=== PATIENT | female | born 1960 | race Caucasian/White ===

== ENCOUNTER → 2016-12-31 | Outpatient (CLI) | payer MEDICARE, OTHER ==
--- NOTE | 2016-12-31 23:40 | MR ---
EXAMINATION TYPE: MR shoulder LT wo con DATE OF EXAM: 12/31/2016 6:05 PM COMPARISON: NONE HISTORY: IMPINGEMENT LEFT SHOULDER TECHNIQUE: Multiplanar, multisequence imaging of the left shoulder is performed without contrast. FINDINGS: Biceps tendon is intact. Subscapularis tendon is intact. There is a mild shoulder joint effusion. The re is slight thickening of the anterior glenoid labrum. There is extensive increased signal and thick ening involving the supraspinatus tendon over the humeral head. There is slight retraction. There is mild spurring at the AC joint with mild subacromial impingement. There is a 2 cm area of patchy incre ased signal at the greater tuberosity of the humerus on the T2 images. There is mild increased signal on the T2 images in the inferior glenoid. There is thickening of the inferior glenoid labrum. There is mild narrowing of the glenohumeral joint space. IMPRESSION: Large rotator cuff tear with extensive increased signal and thickening involving the supraspinatus te ndon. There is a mild bone bruise involving the greater tuberosity of the humerus. There is subchondr al edema in the inferior glenoid. An inferior glenoid labral fracture should be considered. There is glenoid labral thickening consistent with degenerative phenomenon. Shoulder joint effusion. Mild suba cromial impingement. There is partial retraction of the supraspinatus tendon at the attachment on th e greater tuberosity. Mild osteoarthritic narrowing of the glenohumeral joint space.
== END | disposition home or self-care (01) ==
LOC: RADMRIMAIN 16:56
PROVIDERS: ATTEND Nurse Practitioner Family
DX: M75.102 Unspecified rotator cuff tear or rupture of left shoulder, not specified as traumatic (principal); M19.012 Primary osteoarthritis, left shoulder; M25.812 Other specified joint disorders, left shoulder

== ENCOUNTER 2017-08-31 16:08 | Emergency (ER) | payer MEDICARE ==
--- NOTE | 2017-08-31 16:43 | ED ---
Fall HPI - General Chief Complaint: Fall Stated Complaint: Fall/Head Injury Time Seen by Provider: 08/31/17 16:22 Source: patient, family, RN notes reviewed Mode of arrival: ambulatory Limitations: no limitations - History of Present Illness Initial Comments: 56-year-old female presents emergency Department chief complaint of fall. Patient states she tripped and fell in to a table and onto the ground. Patient complains of right-sided facial pain, headache and right-sided chest wall pain. Patient denies loss conscious denies neck, back pain. She states she did bump her knee but has no difficulty ambulating in no pain at time of her left knee. 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 He states she has right-sided deficits. Patient denies any dizziness, chest pain, shortness breath this time. She has complaining primarily of right- sided facial pain but has no pain with movement of her jaw. Denies any blurred vision - Related Data Home Medications Medication Instructions Recorded Confirmed Atorvastatin [Lipitor] 20 mg PO HS 08/31/17 08/31/17 Ibuprofen [Motrin] 600 mg PO Q6HR PRN 08/31/17 08/31/17 Lisinopril [Prinivil] 5 mg PO DAILY 08/31/17 08/31/17 Meclizine [Antivert] 25 mg PO DAILY 08/31/17 08/31/17 Metoprolol Tartrate [Lopressor] 25 mg PO BID 08/31/17 08/31/17 Potassium Chloride [K-Tab ER] 10 meq PO DAILY 08/31/17 08/31/17 Rivaroxaban [Xarelto] 20 mg PO DAILY 08/31/17 08/31/17 Torsemide [Demadex] 20 mg PO BID 08/31/17 08/31/17 carBAMazepine 200 mg PO TID 08/31/17 08/31/17 Allergies Allergy/AdvReac Type Severity Reaction Status Date / Time No Known Allergies Allergy Verified 08/31/17 17:15 Review of Systems ROS Statement: Those systems with pertinent positive or pertinent negative responses have been documented in the HPI. ROS Other: All systems not noted in ROS Statement are negative. Past Medical History Past Medical History: CVA/TIA, Deep Vein Thrombosis (DVT), Hyperlipidemia, Hypertension History of Any Multi-Drug Resistant Organisms: None Reported Past Surgical History: Coronary Bypass/CABG, Orthopedic Surgery Past Psychological History: No Psychological Hx Reported Smoking Status: Never smoker Past Alcohol Use History: None Reported Past Drug Use History: None Reported General Exam Limitations: physical limitation General appearance: alert, in no apparent distress Head exam: Present: atraumatic, normocephalic, normal inspection Eye exam: Present: normal appearance, PERRL, EOMI. Absent: scleral icterus, conjunctival injection, periorbital swelling ENT exam: Present: normal oropharynx, mucous membranes moist, TM's normal bilaterally, normal external ear exam, other (Tenderness to right maxillary region) Neck exam: Present: normal inspection, full ROM. Absent: tenderness, meningismus, lymphadenopathy Respiratory exam: Present: normal lung sounds bilaterally, chest wall tenderness (Mild right-sided chest wall tenderness). Absent: respiratory distress, wheezes, rales, rhonchi, stridor Cardiovascular Exam: Present: regular rate, normal rhythm, normal heart sounds. Absent: systolic murmur, diastolic murmur, rubs, gallop, clicks GI/Abdominal exam: Present: soft, normal bowel sounds. Absent: distended, tenderness, guarding, rebound, rigid Extremities exam: Present: normal capillary refill. Absent: normal inspection ( There is some brace noted to the right lower leg, chronic right-sided weakness) , full ROM, tenderness, pedal edema, joint swelling, calf tenderness Back exam: Present: full ROM. Absent: tenderness Neurological exam: Present: alert, oriented X3, CN II-XII intact, reflexes normal. Absent: motor sensory deficit Skin exam: Present: warm, dry, intact, normal color. Absent: rash Course Vital Signs 08/31/17 16:12 Temperature 98.1 F Pulse Rate 73 Respiratory 20 Rate Blood Pressure 159/70 O2 Sat by Pulse 100 Oximetry Medical Decision Making - Medical Decision Making 56-year-old female presented for a fall, facial injury. Patient states that at the similar her face or she has no headache though I did inform her on CT this showed possible meningioma and concern about acute injury. MRI was recommended though MRIs here at this time. Patient is advised that she need to be transferred to another facility and she is declining at this time as she states she has no headache any more. Patient's was still advised that she's been on her she'll sign out AGAINST MEDICAL ADVICE. Disposition Clinical Impression: Fall, Head injury, Facial contusion Disposition: Left Against Medical Advice Condition: Stable Additional Instructions: Please return to the Emergency Department if symptoms worsen or any other concerns. Referrals: None,Stated [Primary Care Provider] - 1-2 days Time of Disposition: 18:32
--- NOTE | 2017-08-31 17:28 | CT ---
EXAMINATION TYPE: CT brain wo con DATE OF EXAM: 08/31/2017 COMPARISON: NONE INDICATION: Trip and fall today. Right supraorbital laceration and right cheek injury. No LOC. DLP: 1036.00 mGycm, Automated exposure control for dose reduction was used. CONTRAST: None CT of the brain is performed utilizing 3 mm thick sections through the posterior fossa and 3 mm thick sections through the remaining calvarium. Study is performed within 24 hours of arrival to the hosp [facility]. No abnormal hyperdensity is present to suggest an acute intracranial hemorrhage. There is a 0.6 cm hyperdensity along the falx. Series 7 image 36. This measures 116 Hounsfield unit s uggesting underlying calcified patient. This may be a calcified meningioma. This is more dense than e xpected for typical hemorrhage and no extension along the falx is evident. This could be confirmed wi th MRI. No acute infarcts are evident. There is an old left middle cerebral artery infarct with ex vacuo effe ct on the lateral ventricle. Prominence of the sulci adjacent to the infarct are evident. Ventricles and sulci are prominent for the patient age. Paranasal sinuses and mastoid air cells within the [id number] are clear. There is some mild hyperostosis frontalis internus. Report was called case discussed at the time of interpretation. IMPRESSIONS: 1. Hyperdense area within the falx more likely related to calcification and suspected meningioma. C onfirmation with MRI is recommended. 2. Changes compatible with an old left middle cerebral artery infarct.
--- NOTE | 2017-08-31 17:33 | CT ---
EXAMINATION TYPE: CT facial bones wo con DATE OF EXAM: 08/31/2017 COMPARISON: NONE HISTORY: Trip and fall today. Right supraorbital laceration and right cheek injury. No LOC. CT DLP: 538.60 mGycm Automated exposure control for dose reduction was used. TECHNIQUE: CT scan of the sinuses is performed without contrast, axial images are obtained, coronal r eformatted images are also reviewed. FINDINGS: Dental amalgam scatter artifact is present. There is mucosal thickening within the left max illary sinus inferiorly. Right septal deviation is present. No acute fractures are evident. The facial bones appear intact. Greater wings of sphenoid are normal. Nasal bones are intact. Zygomatic arches are intact. Maxillary spine is normal. There is soft tissue swelling and contusion through the right cheek region. No underlying fracture of the maxillary sinuses evident. See additional findings within the brain on the CT brain report same date. IMPRESSION: 1. Soft tissue contusion right cheek. 2. No acute osseous abnormality.
--- NOTE | 2017-08-31 17:53 | XR ---
EXAMINATION TYPE: XR chest 2V DATE OF EXAM: 08/31/2017 COMPARISON: NONE INDICATION: Fall, pain TECHNIQUE: Frontal and lateral views of the chest are obtained. FINDINGS: The heart size is upper limits of normal. The pulmonary vasculature is normal. There is a 2 cm nodule along the left heart border. Some streak atelectasis may be at the left base. No pneumothorax is evident. Lung escoto otherwise appear clear.. No displaced rib fractures are identified. IMPRESSION: 1. 2 cm nodular density posterior left lung. CT chest recommended for additional evaluation. 2. An acute posttraumatic change is not identified.
[2017-08-31 18:55] VITALS: BP 108/54; PULSE 76; RESP 16; TEMP 98
== END 2017-08-31 18:55 | disposition left against medical advice (07) ==
LOC: EC 16:08
DX: S00.83XA Contusion of other part of head, initial encounter (principal); R07.89 Other chest pain; E78.5 Hyperlipidemia, unspecified; I10 Essential (primary) hypertension; Z86.718 Personal history of other venous thrombosis and embolism; Z86.73 Personal history of transient ischemic attack (TIA), and cerebral infarction without residual deficits; Z95.1 Presence of aortocoronary bypass graft; Z79.01 Long term (current) use of anticoagulants; Z79.899 Other long term (current) drug therapy; W01.190A Fall on same level from slipping, tripping and stumbling with subsequent striking against furniture, initial encounter
CPT/HCPCS: 70450; 70486; 71020; 99284

== ENCOUNTER → 2017-09-18 | Outpatient (CLI) | payer MEDICARE ==
[2017-09-18 07:23] LABS: Blood Urea Nitrogen 29 mg/dL (7-17); Non-African American GFR(MDRD) >60 (>60 ml/min/1.73 sqM)
--- NOTE | 2017-09-18 08:54 | MR ---
EXAMINATION TYPE: MR brain wo/w con DATE OF EXAM: 09/18/2017 COMPARISON: CT brain August 31, 2017 HISTORY: abnormal ct of brain TECHNIQUE: Multiplanar, multisequence images of the brain and brainstem is performed without and with IV contras t, utilizing 12 mL intravenous Gadavist . FINDINGS: Diffusion weighted images demonstrate no evidence of a recent infarct or other diffusion ab normality. There is large area of infarct left MCA distribution with ex vacuo dilatation of left faisal tricular system redemonstrated. Normal left MCA artery is not well seen on postcontrast images suspec nicolas chronically thrombosed or occluded. There is background diffuse ventricular and sulcal prominence . Some volume loss presumed old encephalomalacia involving left ventral midbrain is also noted. Midline structures demonstrate normal morphology. Mild atrophy of corpus callosum is present. The cr aniocervical junction appears within normal limits. Correlating with CT there is homogeneous enhancin g extra-axial 7 mm lesion consistent with small meningioma along the falx posteriorly on axial image 22. The dural venous sinuses appear patent. The visualized sinuses are clear and the globes are intac t. IMPRESSION: 1. There is background of mild to moderate diffuse cerebral atrophy with old large MCA distribution i nfarct redemonstrated. 2. A small 7 mm meningioma in the posterior midline along the falx is confirmed.
== END | disposition home or self-care (01) ==
LOC: RADMRIMAIN 06:47
PROVIDERS: ATTEND Family Medicine
DX: G31.9 Degenerative disease of nervous system, unspecified (principal); D32.0 Benign neoplasm of cerebral meninges
CPT/HCPCS: 82565; 84520; 70553; A9581

== ENCOUNTER 2017-11-01 19:13 | Emergency (ER) | payer MEDICARE ==
--- NOTE | 2017-11-02 07:09 | XR ---
EXAMINATION TYPE: TEMPORARY DATE OF EXAM: 11/01/2017 CLINICAL HISTORY: Right ankle pain and foot pain. TECHNIQUE: Frontal, lateral and oblique images of the right ankle and foot are obtained. COMPARISON: None. FINDINGS: There is extensive soft tissue swelling of the right ankle and foot. A minimally displaced fracture of the medial malleolus extends into the joint space. Talar dome appears intact. The distal fracture fragment appears displaced anteriorly 2 mm and medially 1.5 mm. There is also mild osseous d emineralization. No radiopaque foreign body. IMPRESSION: Intra-articular, noncomminuted, medial malleolus are fracture that is minimally displaced 2 mm anteriorly and 1.5 mm medially.
== END 2017-11-01 20:38 | disposition home or self-care (01) ==
LOC: EC 19:13
DX: S82.301A Unspecified fracture of lower end of right tibia, initial encounter for closed fracture (principal); W01.0XXA Fall on same level from slipping, tripping and stumbling without subsequent striking against object, initial encounter; Y92.009 Unspecified place in unspecified non-institutional (private) residence as the place of occurrence of the external cause
CPT/HCPCS: 29515; 99283

== ENCOUNTER → 2018-01-08 | Outpatient (CLI) | payer MEDICARE ==
[2018-01-08 10:23] LABS: Basophils # (A) 0.1 k/uL (0-0.2); Basophils % (A) 1 %; Eosinophils # (A) 0.1 k/uL (0-0.7); Eosinophils % (A) 1 %; HCT 40.2 % (34.0-46.0); HGB 12.3 gm/dL (11.4-16.0); Hypochromasia Slight; Lymphocytes # (A) 2.5 k/uL (1.0-4.8); Lymphocytes % (A) 34 %; MCH 27.7 pg (25.0-35.0); MCHC 30.7 g/dL (31.0-37.0); MCV 90.2 fL (80.0-100.0); Mean Platelet Volume 6.9; Monocytes # (A) 0.4 k/uL (0-1.0); Monocytes % (A) 6 %; Neutrophils # (A) 4.1 k/uL (1.3-7.7); Neutrophils % (A) 57 %; Platelet Count 356 k/uL (150-450); RBC 4.45 m/uL (3.80-5.40); RDW 12.6 % (11.5-15.5); WBC 7.2 k/uL (3.8-10.6)
[2018-01-08 10:44] LABS: ALT 21 U/L (9-52); AST 18 U/L (14-36); Albumin 4.1 g/dL (3.5-5.0); Alkaline Phosphatase 120 U/L (38-126); Anion Gap 11 mmol/L; Blood Urea Nitrogen 25 mg/dL (7-17); Calcium 9.6 mg/dL (8.4-10.2); Carbon Dioxide 26 mmol/L (22-30); Chloride 100 mmol/L (98-107); Cholesterol 185 mg/dL (<200); Glucose 94 mg/dL (74-99); HDL Cholesterol 81 mg/dL (40-60); LDL Cholesterol,Calculated 86 mg/dL (0-99); Potassium 5.1 mmol/L (3.5-5.1); Sodium 137 mmol/L (137-145); Total Bilirubin 0.5 mg/dL (0.2-1.3); Total Protein 7.5 g/dL (6.3-8.2); Triglycerides 91 mg/dL (<150)
[2018-01-08 20:29] LABS: Hemoglobin A1C 5.2 % (4.0-6.0)
== END | disposition home or self-care (01) ==
LOC: LABWHC1 09:49
PROVIDERS: ATTEND Nurse Practitioner Family
DX: I10 Essential (primary) hypertension (principal); R60.9 Edema, unspecified; N39.3 Stress incontinence (female) (male)
CPT/HCPCS: 36415; 80053; 80061; 83036; 84443; 85025

== ENCOUNTER → 2018-01-28 | Outpatient (CLI) | payer MEDICARE ==
[2018-01-28 13:25] LABS: ALT 22 U/L (9-52); AST 19 U/L (14-36); Albumin 4.2 g/dL (3.5-5.0); Alkaline Phosphatase 111 U/L (38-126); Anion Gap 11 mmol/L; Blood Urea Nitrogen 28 mg/dL (7-17); Calcium 9.7 mg/dL (8.4-10.2); Carbon Dioxide 29 mmol/L (22-30); Chloride 101 mmol/L (98-107); Glucose 87 mg/dL (74-99); Potassium 4.4 mmol/L (3.5-5.1); Sodium 141 mmol/L (137-145); Total Bilirubin 0.4 mg/dL (0.2-1.3); Total Protein 7.4 g/dL (6.3-8.2)
== END | disposition home or self-care (01) ==
LOC: LABWHC1 11:57
PROVIDERS: ATTEND Internal Medicine Interventional Cardiology
DX: I25.810 Atherosclerosis of coronary artery bypass graft(s) without angina pectoris (principal); R60.0 Localized edema
CPT/HCPCS: 36415; 80053; 83880